=== PATIENT | male | born 1985 | race Caucasian/White ===

== ENCOUNTER 2019-05-08 11:44 | Emergency (ER) | payer OTHER ==
[~2019-05-08] VITALS: Ht 177.8 cm; Wt 99.1 kg
[2019-05-08] MEDS ORDERED: DOXY100C43 PO (12:55)
[2019-05-08] MEDS ORDERED: TETanus/Pertussis (Acell)/Diphther VAC/PF (Tdap-Adult) 0.5ml syringe IMVAC ONE (12:55)
[2019-05-08 13:09] VITALS: BP 145/75
== END 2019-05-08 13:10 | disposition home or self-care (01) ==
LOC: ER 11:45
DX: L02.213 Cutaneous abscess of chest wall (principal); Z79.899 Other long term (current) drug therapy
CPT/HCPCS: 90471; 90715; 99283